=== PATIENT | male | born 1985 | race Two or more races ===

== ENCOUNTER 2020-06-02 14:54 | Inpatient (IN) | payer OTHER ==
[~2020-06-02] VITALS: Ht 177.8 cm; Wt 108.8 kg
[2020-06-02] MEDS ORDERED: ONDANSETRON HCL 4 MG/2 ML VIAL IV ONE (15:15)
[2020-06-02] MEDS ORDERED: MORPHINE SULFATE 4 MG/ML SYR/VIAL IV ONE (15:15)
[2020-06-02] MEDS ORDERED: cloNIDine HCL 0.1 MG TAB PO ONE (17:00)
[2020-06-02 17:31] LABS: Basophils # (auto) 0.1 10 ^3/uL (0-0.2); Basophils % (auto) 1.2 % (0.0-2.0); Eosinophils # (auto) 0.3 10 ^3/uL (0-0.8); Eosinophils % (auto) 3.4 % (0.0-7.0); Hematocrit 44.1 % (41.0-53.0); Hemoglobin 15.1 g/dL (13.5-17.5); Lymphocytes % (auto) 21.8 % (10.0-50.0); Mean Corpuscular Hemoglobin 28.5 pg (28.0-32.0); Mean Corpuscular Hgb Conc. 34.2 g/dL (32.0-36.0); Mean Corpuscular Volume 83.5 fL (80.0-100.0); Monocytes # (auto) 0.5 10 ^3/uL (0-1.3); Monocytes % (auto) 5.8 % (0.0-12.0); Neutrophils # (auto) 6.2 10 ^3/uL (1.6-8.6); Neutrophils % (auto) 67.8 % (37.0-80.0); Nucleated Red Blood Cells % 0.5 %; Platelet Count (auto) 397 10^3/uL (140-450); Red Blood Cells 5.28 10^6/uL (4.5-5.90); Red Cell Distribution Width 13.2 % (11.8-14.3); White Blood Cell 9.1 10^3/uL (4.4-10.8)
[2020-06-02 18:43] LABS: Albumin 3.8 g/dL (3.4-5.0); Calcium 8.5 mg/dL (8.5-10.1); Potassium 3.3 mmol/L (3.5-5.1)
[2020-06-02 18:48] LABS: BUN/Creatinine Ratio 16.3; Bilirubin, Total 0.6 mg/dL (0.2-1.0); Total Protein 7.7 g/dL (6.4-8.2)
[2020-06-02] MEDS ORDERED: HYDROcodone-ACET 5/325MG TAB PO PRN (20:30)
[2020-06-02] MEDS: D5W/SOD CHL 0.45% 1,000 ML IV SCH (22:22)
[2020-06-02 22:59] VITALS: BP 156/97
--- NOTE | 2020-06-02 23:31 | NUR ---
Telemetry admit from [facility] admitted to Telemetry unit after SBAR received. Patient oriented to Flora Edwards, primary RN, unit, room, bed, and unit policies regarding patient care and visiting hours. Patient now on continuous telemetry monitoring, tele box # [id number]] and telemetry reading on arrival to unit is [SB 44]. Patient weighed by bedscale and encouraged to call if they need something. All questions and concerns addressed, patient verbalized understanding. Note: []
[2020-06-02] MEDS ORDERED: LOSA50TA27 PO (23:37)
[2020-06-02] MEDS ORDERED: POTA-220 PO (23:37)
[2020-06-02] MEDS ORDERED: LOSA25TA8 PO (23:38)
--- NOTE | 2020-06-03 00:16 | NUR ---
MRSA SWAB AND COVID19 SWAB COLLECTED AND SENT TO LAB. CONTINUE TO MONITOR.
--- NOTE | 2020-06-03 01:31 | NUR ---
MD RUIZ AT BEDSIDE. STRESS TEST ORDERED. CONTINUE TO MONITOR.
--- NOTE | 2020-06-03 01:50 | NUR ---
IV insertion IV access obtained, via clean sterile technique by inserting [22] gauge catheter at [LFA] after [1] attempt(s). IV secured properly. No trauma to site. Patient tolerated well. NOTE: []
[2020-06-03] MEDS: D5W/SOD CHL 0.45% 1,000 ML IV SCH ×3 (03:10→17:37)
[2020-06-03 05:00] VITALS: BP 139/80
--- NOTE | 2020-06-03 07:50 | NUR ---
Opening Shift Note Assumed care of patient, Pt awake and alert sitting up in bed. Patient is on room air with even and unlabored respirations No S/S of distress/SOB or pain at this time. Bed is in lowest position, wheels are locked, side rails up x2, and call light is within reach. Guards noted at bedside. Instructed on POC and to call for assist PRN, will continue to monitor for changes Q1hr and PRN.
[2020-06-03 09:00] VITALS: BP 157/90
[2020-06-03] MEDS ORDERED: METOPROLOL TARTRATE 25 MG TAB PO SCH (10:00)
[2020-06-03] MEDS: ENOXAPARIN SOD 40 MG/0.4 ML SYRINGE SC SCH (10:17)
[2020-06-03] MEDS: ASPirin-EC 81 mg tab PO SCH (10:18)
[2020-06-03] MEDS: LOSARTAN POTASSIUM 50 MG TAB PO SCH (10:18)
--- NOTE | 2020-06-03 11:30 | NUR ---
STRESS TEST POSTPONED SPOKE WITH STRESS TEST NURSE ADORE. RECEIVED UPDATE THAT PATIENT WILL NOT BE ABLE TO HAVE STRESS TEST TODAY THE DOUGH CUTTING MACHINE OPERATOR HAD AN EMERGENCY. PT RESCHEDULED FOR TOMORROW, AND PER ADORE PT CAN EAT TODAY. DIET CHANGED IN [facility]. PT INFORMED OF UPDATED POC. PT VERBALIZED UNDERSTANDING. PT CONTINUES TO DENY ANY PAIN, INCLUDING CHEST PAIN. INFORMED PT TO CALL NEEDED. WILL CONTINUE TO MONITOR Q1H AND PRN.
[2020-06-03 12:40] VITALS: BP 151/90
--- NOTE | 2020-06-03 14:30 | NUR ---
Rounds Patient awake and alert laying in bed with guards present. Patient is on room air with No S/S of distress/SOB or pain at present time. Will continue to monitor changes q1hr and PRN.
[2020-06-03 17:00] VITALS: BP 143/74
--- NOTE | 2020-06-03 17:28 | NUR ---
REPORT GIVEN TO KIERRA ALEXIS. CARE ENDORSED.
--- NOTE | 2020-06-03 18:30 | NUR ---
Spoke to MD Reynolds and notified him of patient troponin trending up, and also potassium is low. MD Reynolds advised he will review chart and put orders in.
[2020-06-03] MEDS ORDERED: IOHEXOL 350 MG/ML 100ML IJ ONE (18:58)
[2020-06-03] MEDS ORDERED: POTASSIUM CHL 20 Meq TABLET PO ONE (19:00)
[2020-06-03 22:27] VITALS: BP 150/87
[2020-06-04] MEDS: D5W/SOD CHL 0.45% 1,000 ML IV SCH ×4 (02:44→19:10)
[2020-06-04 04:59] VITALS: BP 150/92
[2020-06-04 08:00] VITALS: BP 165/92
[2020-06-04] MEDS ORDERED: ADENOSINE 89 MG in GIVE UN-DILUTED 0 ML IV ONE (08:30)
[2020-06-04 08:56] VITALS: BP 165/92
[2020-06-04 09:39] LABS: BUN/Creatinine Ratio 12.3; Calcium 8.4 mg/dL (8.5-10.1); Potassium 3.9 mmol/L (3.5-5.1)
[2020-06-04] MEDS: ASPirin-EC 81 mg tab PO SCH (14:52)
[2020-06-04] MEDS: METOPROLOL TARTRATE 25 MG TAB PO SCH (14:52)
[2020-06-04] MEDS: ENOXAPARIN SOD 40 MG/0.4 ML SYRINGE SC SCH (14:53)
[2020-06-04] MEDS: LOSARTAN POTASSIUM 50 MG TAB PO SCH (14:54)
--- NOTE | 2020-06-04 19:25 | NUR ---
Opening Shift Note Received report from yehuda Gonzalez RN. Assumed care of patient, awake and alert. No S/S of distress/SOB or pain. Instructed on POC and to call for assist PRN, will continue to monitor for changes Q1hr and PRN. Guards at bedside.
[2020-06-04 20:00] VITALS: BP 158/82
[2020-06-04 21:22] VITALS: BP 158/82
--- NOTE | 2020-06-05 | NUR ---
Reminded patient of [id number] status after midnight related to scheduled LHC on 06/05/20. Patient verbalized understanding.
[2020-06-05] MEDS: D5W/SOD CHL 0.45% 1,000 ML IV SCH ×3 (01:50→15:10)
--- NOTE | 2020-06-05 02:41 | NUR ---
Report given to REUBEN Castellanos. Patient is resting in bed with eyes closed, no s/s of distress and patient denies pain.
--- NOTE | 2020-06-05 04:39 | NUR ---
CHG BATH GIVEN AND ALL LINENS CHANGED FOR POSSIBLE LEFT HEART CATH TODAY.
[2020-06-05 05:06] VITALS: BP 147/79
--- NOTE | 2020-06-05 07:30 | NUR ---
Opening shift note Assumed care of patient from NOC RN. Patient is AOX4 no s/s of distress or shortness of breath noted. Bed is in lowest locked position, side rails up x2 2 guards at bedside and call light is within reach. Updated patient on plan of care and patient verbalized understanding. Will continue to monitor q1hr and PRN.
[2020-06-05 07:50] LABS: Basophils # (auto) 0.1 10 ^3/uL (0-0.2); Basophils % (auto) 1.1 % (0.0-2.0); Eosinophils # (auto) 0.3 10 ^3/uL (0-0.8); Eosinophils % (auto) 4.4 % (0.0-7.0); Hematocrit 45.6 % (41.0-53.0); Hemoglobin 16.1 g/dL (13.5-17.5); Lymphocytes # (auto) 1.8 10 ^3/uL (0.4-5.4); Lymphocytes % (auto) 23.8 % (10.0-50.0); Mean Corpuscular Hemoglobin 29.7 pg (28.0-32.0); Mean Corpuscular Hgb Conc. 35.2 g/dL (32.0-36.0); Mean Corpuscular Volume 84.4 fL (80.0-100.0); Monocytes # (auto) 0.4 10 ^3/uL (0-1.3); Monocytes % (auto) 5.9 % (0.0-12.0); Neutrophils # (auto) 4.9 10 ^3/uL (1.6-8.6); Neutrophils % (auto) 64.8 % (37.0-80.0); Nucleated Red Blood Cells % 0.4 %; Platelet Count (auto) 364 10^3/uL (140-450); Red Cell Distribution Width 13.7 % (11.8-14.3); White Blood Cell 7.5 10^3/uL (4.4-10.8)
[2020-06-05 08:06] LABS: INR 1.08 (0.9-1.15); Partial Thromboplastin Time 30.1 sec (23.0-31.2)
--- NOTE | 2020-06-05 08:15 | NUR ---
Patient off unit Patient taken to dental lab technician via bed. No s/s of distress or shortness of breath noted.
[2020-06-05] MEDS ORDERED: LIDOCAINE 2%HCL (LOCAL ANESTH.) INJ 20ML MDV ONE ×2 (08:55→09:04)
[2020-06-05] MEDS ORDERED: IODIXANOL 320MG/ML 100ML BTL IV ONE ×2 (08:55→09:49)
[2020-06-05] MEDS ORDERED: ANGIOMAX 250 MG VIAL IV ONE (09:00)
[2020-06-05] MEDS ORDERED: MIDAZOLAM HCL 1MG/1ML-2 ML VIAL ONE (09:01)
[2020-06-05] MEDS ORDERED: VERAPAMIL 2.5MG/ML INJ 2ML VIAL IV ONE (09:01)
[2020-06-05] MEDS ORDERED: SODIUM CHL 0.9% 0 ML ONE (09:01)
[2020-06-05] MEDS ORDERED: fentaNYL CITRATE 100 MCG/2 ML VL ONE (09:01)
[2020-06-05 09:24] VITALS: BP 152/91
[2020-06-05] MEDS ORDERED: HEPARIN SODIUM (PORCINE) 5000 UNITS/ML 1ML VIAL ONE (09:45)
--- NOTE | 2020-06-05 10:28 | NUR ---
Report Received report from Sherrie ALEXIS.
[2020-06-05 11:05] VITALS: BP 143/92
--- NOTE | 2020-06-05 11:05 | NUR ---
Patient back on unit Patient brought back on unit accompanied by REUBEN jose. Patient is AOx4 no s/s of distress or SOB noted. Vitals are 143/92, 95% on room air, 48bpm, 18rr, and 97.7 temp. Vascband is in place and intact, no s/s of trauma to site noted. Educated patient to call for assistance as needed. Will continue to monitor.
--- NOTE | 2020-06-05 11:21 | NUR ---
VASC BAND 2ml of air was removed from vasc band. No s/s of bleeding or trauma noted. Assessed distal extremity for sensation and circulation, patient verbalized having sensation and mobility. Educated patient to not heavy lift or excessively bend wrist, advised patient to not remove band patient verbalized understanding. Will continue to monitor.
[2020-06-05] MEDS: ASPirin-EC 81 mg tab PO SCH (11:22)
[2020-06-05] MEDS: METOPROLOL TARTRATE 25 MG TAB PO SCH (11:23)
[2020-06-05] MEDS: LOSARTAN POTASSIUM 50 MG TAB PO SCH (11:23)
[2020-06-05] MEDS: ENOXAPARIN SOD 40 MG/0.4 ML SYRINGE SC SCH (11:23)
--- NOTE | 2020-06-05 12:06 | NUR ---
VASC BAND 2ml of air was removed from vasc band. No s/s of bleeding or trauma noted. Assessed distal extremity for sensation and circulation, patient verbalized having sensation and mobility. Will continue to monitor.
--- NOTE | 2020-06-05 13:45 | NUR ---
Vasc band removal Vasc band was removed. No bleeding or signs and symptoms of trauma noted. Covered site with gauze and tegaderm. Educated patient to not bend, hyperextend, pull or heavy lift with affected hand. Educated patient to call for assistance if bleeding or loss of sensation is noted. Patient verbalized understanding. Will continue to monitor qh1r and PRN.
[2020-06-05 16:22] VITALS: BP 157/93
[2020-06-05 16:44] VITALS: BP 157/93
--- NOTE | 2020-06-05 17:55 | NUR ---
Discharge note Discharge instructions reviewed with patient and given to guards as ordered. Encourage to follow up with care home MD as instructed. All questions and concerns addressed. Patient verbalized understanding. IV removed with catheter intact, pressure dressing applied. Telemetry unit returned to ICU. Patient endorsed to guards at bedside for D/C and transportation. No signs and symptoms of distress noted.
== END 2020-06-05 17:55 | DRG 287 ==
LOC: ER 14:54 → EDBD 14:54 → EEVIPCON 14:54 → TELE 14:55 → TELE-WESTW 22:38
PROVIDERS: ADMIT Internal Medicine; ATTEND Internal Medicine
PROC: 4A02XM4 Measurement of Cardiac Total Activity, External Approach (ICD-10-PCS; principal; 2020-06-04)
PROC: 4A023N7 Measurement of Cardiac Sampling and Pressure, Left Heart, Percutaneous Approach (ICD-10-PCS; 2020-06-05)
PROC: B2111ZZ Fluoroscopy of Multiple Coronary Arteries using Low Osmolar Contrast (ICD-10-PCS; 2020-06-05)
PROC: B2151ZZ Fluoroscopy of Left Heart using Low Osmolar Contrast (ICD-10-PCS; 2020-06-05)
DX: R07.89 Other chest pain (principal); I24.9 Acute ischemic heart disease, unspecified; I10 Essential (primary) hypertension; R91.1 Solitary pulmonary nodule; E78.00 Pure hypercholesterolemia, unspecified; Z90.49 Acquired absence of other specified parts of digestive tract; Z82.49 Family history of ischemic heart disease and other diseases of the circulatory system; Z83.3 Family history of diabetes mellitus; Z79.899 Other long term (current) drug therapy; Z87.891 Personal history of nicotine dependence
CPT/HCPCS: 36415; 71045; 71260; 78452; 80048; 80053; 83880; 84484; 85025; 85379; 85610; 85730; 87081; 93017; 93458; 96360; 96372; 99152; 99153; G0378; J0153; J2250; Q9967